=== PATIENT | male | born 1995 | race African-American/Black ===

== ENCOUNTER 2025-03-31 14:37 | Emergency (ER) | payer BC, SELFPAY ==
--- NOTE | ~2025-03-31 | XR_ITS ---
EXAM/PROCEDURE: XR chest 2V - 03/31/2025 15:10 CDT HISTORY: 29 years old Male with cp TECHNIQUE: Two view(s) of the chest. COMPARISON: None available. FINDINGS: LUNGS/ PLEURA: No focal consolidation. No appreciable pneumothorax or large pleural effusion. HEART/ MEDIASTINUM: Heart appears normal in size. BONES: Degenerative changes. OTHER: Visualized upper abdomen is unremarkable. IMPRESSION: No acute process. Reviewed, dictated and finalized at location N. IMPRESSION: No acute process.
--- NOTE | 2025-03-31 14:38 | ECG_ITS ---
Test Date: 2025-03-31 14:42:22 Measurements Intervals [place] Rate: 79 P: 22 MO: 154 QRS: 41 QRSD: 97 T: -2 QT: 348 QTc: 401 Interpretive Statements SINUS RHYTHM NONSPECIFIC T-WAVE ABNORMALITY ABNORMAL ECG No previous ECG available for comparison Electronically Signed On 03-31-2025 17:19:10 CDT by Eder Cisneros M.D.
[2025-03-31 14:48] VITALS: BP 144/79; PULSE 83; RESP 16; TEMP 36.6; O2SAT 100
[2025-03-31 14:54] LABS: Hematocrit 46.3 % (42.0-52.0); Hemoglobin 15.5 g/dL (14.0-18.0); Immature Granulocyte Percent A 0.1 % (0-0.5); Lymphocytes Absolute Auto 2.74 K/mm3 (0.9-3.2); Mean Corpuscular HGB Conc 33.5 g/dl (32-36); Mean Corpuscular Hemoglobin 28.1 pg (26-34); Mean Corpuscular Volume 84.0 fl (80-100); Nucleated Red Blood Cells Absolute Auto 0.000 K/mm3 (0.0-0.012); Nucleated Red Blood Cells Perc 0.0 % (0.0-0.2); Platelet Count Result 288 k/mm3 (150-375); Red Blood Count 5.51 M/mm3 (4.6-6.20); White Blood Count 6.9 K/mm3 (4.5-10.0)
[2025-03-31 15:03] LABS: Alanine Aminotransferase 34 U/L (6-50); Albumin Level 4.8 g/dL (3.5-5.1); Alkaline Phosphatase 115 U/L (38-126); Anion Gap 10 mmol/L (4-12); Aspartate Amino Transferase 55 U/L (17-59); Bilirubin,Total 1.0 mg/dL (0.2-1.3); Blood Urea Nitrogen 12 mg/dL (9-20); Calcium 9.4 mg/dL (8.4-10.2); Carbon Dioxide 24 mmol/L (22-30); Chloride 105 mmol/L (98-107); Estimated CRCL calculation 118 ml/min; Estimated Glomerular Filt Rate > 60; Glucose 85 mg/dL (65-110); Lipase 117 U/L (23-300); Potassium 4.0 mmol/L (3.4-5.0); Sodium 139 mmol/L (137-145); Total Protein 8.9 g/dL (6.3-8.2)
[2025-03-31 15:05] LABS: INR 1.3; Prothrombin Time 16.3 Seconds (11.1-14.7)
[2025-03-31 15:06] LABS: Partial Thromboplastin Time 28.2 Seconds (22.3-36.8)
[2025-03-31 15:15] LABS: Troponin I < 0.012 ng/mL (0.000-0.034)
[2025-03-31 15:56] VITALS: BP 135/88; PULSE 75; RESP 16; O2SAT 100
[2025-03-31 16:02] VITALS: O2SAT 100
[2025-03-31 16:49] VITALS: BP 140/93; PULSE 72; RESP 16; O2SAT 99
--- NOTE | 2025-03-31 17:36 | ECG_ITS ---
Test Date: 2025-03-31 17:41:55 Measurements Intervals [place] Rate: 59 P: 27 MS: 169 QRS: 37 QRSD: 106 T: -1 QT: 382 QTc: 378 Interpretive Statements SINUS BRADYCARDIA WITH SINUS ARRHYTHMIA MODERATE INTRAVENTRICULAR CONDUCTION DELAY [105+ ms QRS DURATION, 80+ ms Q/S IN V1/V2, NO Q AND 60+ ms R IN I/aVL/V5/V6] NONSPECIFIC T-WAVE ABNORMALITY ABNORMAL ECG Compared to ECG 03/31/2025 14:42:22 Intraventricular conduction delay now present Sinus rhythm no longer present T-wave abnormality still present Electronically Signed On 03-31-2025 18:14:07 CDT by Eder Cisneros M.D.
--- OUTSIDE RECORDS SUMMARY | 2025-03-31 18:03 | XMS_ITS | Encounter Summary ---
Author Organization [facility] Health Address [address] [place] [address] Care Team Providers Care Extrusion Technician Name Role Phone Unavailable Primary Care Provider Unavailabl e Encounter Details Date Type Department Care Team (Latest Contact Info) Description 05/02/2021 Abstract Social History Tobacco Use Types Packs/Day Years Used Date Smoking Tobacco: Never Assessed Sex and Gender Information Value Date Recorded Sex Assigned at Not on file Legal Sex Male 10:44 AM PDT Gender Identity Not on file Sexual Orientation Not on file COVID-19 Exposure Response Date Recorded In the last month, have you been in contact with someone who was confirmed or suspected to have Coronavirus / COVID-19? No / Unsure 05/02/2021 12:46 PM PDT documented as of this encounter Plan of Treatment Not on file documented as of this encounter Visit Diagnoses Not on filedocumented in this encounter
--- OUTSIDE RECORDS SUMMARY | 2025-03-31 18:03 | XMS_ITS | Clinical Summary ---
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 Gender Identity Not on file Sexual Orientation Not on file Plan of Treatment Health Maintenance Due Date Last Done Comments Hepatitis C Virus (HCV) Screening 1996 Human Papillomavirus (HPV) Immunization (1 - 3-dose SCDM series) 10/16/2023 SARS-COV-2 Immunization ( season) 2024 12/15/2020, 11/16/2020 Influenza Immunization (#1) 2025 Respiratory Syncytial Virus (RSV) Immunization (Adult) (1 - 1-dose 75+ series) 10/16/2071 Hepatitis B Immunization Completed 998, 12/22/1997, 1996, Additional history exists DTaP/Tdap/Td Immunization Discontinued 2007, 01/22/2002, 01/21/1999, Additional history exists TdaP Immunization Completed 10/25/2007 Meningococcal Immunization (ACWY) Aged Out 03/10/2011 No longer eligible based on patient's age to complete this topic Pneumococcal Immunization Combined Aged Out No longer eligible based on patient's age to complete this topic Rotavirus Immunization Aged Out No lo nger eligible based on patient's age to complete this topic
--- OUTSIDE RECORDS SUMMARY | 2025-03-31 18:03 | XMS_ITS | Encounter Summary ---
Author Organization [facility] Health Address [address] [place] [address] Care Team Providers Care Superintendent Circus Name Role Phone Unavailable Primary Care Provider Unavailabl e Prior Encounters Date Type Department Care Team Description 05/02/2021 Abstract 05/02/2021 Travel 05/02/2021 1:00 PM CDT Office Visit [facility] [address] [place] [phone] Carlita De Leon DMD Plan of Treatment Not on file Procedures Procedure Name Priority Date/Time Associated Diagnosis Comments INTRAORAL PHOTO Routine 05/02/2021 1:00 PM CDT INTRAORAL PHOTO Routine 05/02/2021 1:00 PM CDT INTRAORAL PHOTO Routine 05/02/2021 1:00 PM CDT INTRAORAL PHOTO Routine 05/02/2021 1:00 PM CDT PANORAMIC RADIOGRAPHIC IMAGE Routine 05/02/2021 1:00 PM CDT INTRAORAL - COMPREHENSIVE SERIES OF RADIOGRAPHIC IMAGES Routine 05/02/2021 1:00 PM CDT COMPREHENSIVE ORAL EVALUATION - NEW OR ESTABLISHED PATIENT Routine 05/02/2021 1:00 PM CDT Visit Diagnoses [place] [id number] [place] [employer]
--- OUTSIDE RECORDS SUMMARY | 2025-03-31 18:03 | XMS_ITS | Clinical Summary ---
Author Organization [facility] [employer] Address [address] [place] [address] Care Team Providers Care Assurance Specialist Name Role Phone Unavailable Primary Care Provider Unavailabl e Source Comments [facility] [employer] [employer],non-owned Affiliates and Associated Physician Practices is amultiple site organization consisting of ambulatory clinics and hospital sitesin [place], [place], [place] and [place]. This disclosure is being madepursuant to the Care Everywhere program and may not contain all information available regarding this patient. Last updated 18.[employer] [facility] Allergies No known active allergies Medications * Be aware that medications may not be up to date on this document. Alwaysverify current medications with the patient. amitriptyline (ELAVIL) 25 MG tabletIndications :Post concussive syndrome,Head ache,Vision disturbance Take 1 Tab by mouth at bedtime. 30 Tab 3 10/30/2013 Active Active Problems Problem Noted Date Diagnosed Date Post concussive syndrome 10/30/2013 Head ache 10/30/2013 Overview (11/14/2013): 10/30/13 Elavil 25 mg po q hs Knee pain 10/30/2013 Overview (11/14/2013): 10/30/13 X-ray ordered. HAY, RF, ESR, CRP Tinea capitis 10/30/2013 Overview (11/14/2013): 10/30/13 Griseofulvin Malaise and fatigue 10/30/2013 Overview (11/14/2013): 10/30/13 CBC, monospot, EBV Concussion 07/27/2013 Overview (08/01/2013): 07/27/13 [facility] Well child visit 03/10/2011 Overview (03/26/2011): 15 yo 03/10/11 Ganglion cyst 06/15/2010 Overview (03/26/2011): 08/25/10 xray neg 03/10/11 referred to ortho Immunizations Immunization Administration Dates Next Due DPT 01/21/1999, 8,02/27/1997,12/23 HEP A PEDS 2 DOSE 03/10/2011,01/21/2007 HEP B VACCINE, PED/ADOL 06/25/1998,1996, HIB BOOSTER 01/21/1999, 8,04/03/1997,12/23 Human Papilloma Virus Li valent Vaccine 03/10/2011 MENINGOCOCCAL ACWY (MCV4P) VAC IM 03/10/2011 MMR 01/22/2002,06/25/1998 POLIO IPV 01/22/2002 POLIO OPV 12/22/1997,04/03/1997,1996 PPD 01/11/2001 TDAP (7yrs+) 01/22/2002 VARICELLA 01/21/2007,01/21/1999 Social History Tobacco Use Types Packs/Day Years Used Date Smoking Tobacco: Never Smokeless Tobacco: Never Alcohol Use Standard Drinks/Week Comments No 0 (1 standard drink = 0.6 oz pur e alcohol) Sex and Gender Information Value Date Recorded Sex Assigned at Not on file 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 Gender Identity Not on file Sexual Orientation Not on file Last Filed Vital Signs Vital Sign Reading Time Taken Comments Blood Pressure 149/78 04/02/2016 8:00 PM CDT Pulse 56 04/02/2016 8:00 PM CDT Temperature 36.5 C (97.7 F) 04/02/2016 4:58 PM CDT Respiratory Rate 18 04/02/2016 8:00 PM CDT Oxygen Saturation 100% 04/02/2016 8:00 PM CDT Inhaled Oxygen Concentration - - Weight 85 kg (187 lb 8 oz) 04/02/2016 4:58 PM CD T Height 188 cm (6' 2) 04/02/2016 4:58 PM CDT Body Mass Index 24.07 04/02/2016 4:58 PM CDT Plan of Treatment Health Maintenance Due Date Last Done Comments DTAP/TDAP/TD VACCINES (6 - Tdap) 10/16/2007 01/22/2002, 01/21/1999, 06/25/1998, Additional history exists HPV VACCINE (2 - Male 2-dose series) 09/10/2011 03/10/2011 HIV SCREENING 10/16/2011 HEPATITIS C SCREENING 10/11/2014 DEPRESSION SCREENING 07/16/2024 COVID-19 VACCINE ( season) 2025 INFLUENZA VACCINE (#1) 2025 ZOSTER VACCINE (1 of 2) 2046 HEPATITIS B VACCINE Completed 06/25/1998, 1996, 1996 HIB VACCINE Completed 01/21/1999, 06/15, 04/03/1997, Additional history exists MENINGOCOCCAL GROUPS A/C/Y/W VACCINE Aged Out 03/10/2011 No longer eligible based on patient's age to complete this topic MENINGOCOCCAL (Group B) VACCINE SHARED DECISION-MAKING Aged Out No longer eligible based on patient's age to complete this topic PNEUMOCOCCAL VACCINE Aged Out No long er eligible based on patient's age to complete this topic Insurance MEDICAID - [place]
--- OUTSIDE RECORDS SUMMARY | 2025-03-31 18:03 | XMS_ITS | Clinical Summary ---
Author Organization [facility] Health Address [address] [place] [address] Care Team Providers Care Ict Managers Name Role Phone Unavailable Primary Care Provider Unavailabl e Allergies No known active allergies Medications No known medications Active Problems No known active problems Social History Tobacco Use Types Packs/Day Years Used Date Smoking Tobacco: Never Assessed Sex and Gender Information Value Date Recorded Sex Assigned at Not on file Legal Sex Male 10:44 AM PDT Gender Identity Not on file Sexual Orientation Not on file Plan of Treatment Health Maintenance Due Date Last Done Comments Dental Prophylaxis 1996 Dental Oral Exam 11/01/2021 05/02/2021 Dental X-Ray: Bitewings 11/01/2021 05/02/2021 Dental X-Ray: Full Mouth 05/03/2024 05/02/2021 Dental X-Ray: Panoramic 05/03/2024 05/02/2021 Procedures Procedure Name Priority Date/Time Associated Diagnosis Comments PANORAMIC RADIOGRAPHIC IMAGE Routine 05/02/2021 1:00 PM CDT INTRAORAL - COMPREHENSIVE SERIES OF RADIOGRAPHIC IMAGES Routine 05/02/2021 1:00 PM CDT COMPREHENSIVE ORAL EVALUATION - NEW OR ESTABLISHED PATIENT Routine 05/02/2021 1:00 PM CDT from Last 3 Months or Most Recently Relevant to Health Maintenance [place] [address] [place] [id number] [employer] [employer]
[2025-03-31 18:15] LABS: Troponin I < 0.012 ng/mL (0.000-0.034)
--- NOTE | 2025-03-31 18:32 | ED_ITS ---
HPI - Chest Pain General Chief Complaint: Chest Pain Stated Complaint: chest pain Time Seen by Provider: 03/31/25 16:50 Source: patient Mode of arrival: ambulatory Limitations: no limitations History of Present Illness HPI narrative: 29-year-old otherwise healthy with a complains of intermittent sharp shooting chest pain on and off for past several weeks. Patient states that he was at work this morning started having pain. He he denies any shortness of breath . Denies any trauma or lifting any heavy objects. MD complaint: chest pain Onset (ago): hour(s) (few) Timing of current episode: episodic Onset: during rest Pain location: left chest Pain radiation: left arm Severity: mild Quality: shooting Relieving factors: nothing Exacerbating factors: nothing Risk Factors Coronary artery disease risk factors: none Related Data Allergies Allergy/AdvReac Type Severity Reaction Status Date / Time No Known Allergies Allergy Verified 03/31/25 14:54 Review of Systems 2 Review of Systems: All systems reviewed & are unremarkable except as noted in HPI and below Constitutional: Constitutional: Reports no additional constitutional complaints Eyes: Eyes: Reports no additional eye complaints ENT: Reports system reviewed and no additional complaints, except as documented Cardiovascular: Cardiovascular: Reports as per HPI Respiratory: Respiratory: Reports no additional respiratory complaints Gastrointestinal: Gastrointestinal: Reports no additional gastrointestinal complaints Musculoskeletal: Musculoskeletal: Reports no additional musculoskeletal complaints Neurologic: Reports system reviewed and no additional complaints, except as documented Exam 2 Narrative: GENERAL: Well-appearing, well-nourished, and in no acute distress. HEAD: Normocephalic, atraumatic. EYES: PERRLA and EOMI. ENT: Nares clear, no rhinorrhea or epistaxis. Mucous membranes moist. NECK: Supple. CHEST: Clear to auscultation. No respiratory distress.tenderness on palpation HEART: Regular rate and rhythm. No murmur heard. Normal peripheral pulses. ABDOMEN: Soft, nontender, nondistended, normal active bowel sounds. EXTREMITIES: Normal range of motion. No edema. SKIN: Warm, dry, no rash. NEURO: No focal deficits. Alert and oriented x3. PSYCH: Normal mood and affect. Course Course Emergency Course: Patient remained asymptomatic while he was here in the ER. Informed him about his lab and EKG findings. Cause of his pain most likely musculoskeletal in nature advised him to take naproxen as prescribed. Vital Signs Vital signs: Vital Signs Temperature 36.6 C 09/16/25 14:48 Pulse Rate 83 03/31/25 14:48 Respiratory Rate 16 03/31/25 14:48 Blood Pressure 144/79 H 03/31/25 14:48 Pulse Oximetry 100 03/31/25 14:48 Oxygen Delivery Room Air 03/31/25 14:48 Temperature 36.6 C 03/31/25 14:48 Pulse Rate 72 03/31/25 16:49 Respiratory Rate 16 03/31/25 16:49 Blood Pressure 140/93 H 03/31/25 16:49 Pulse Oximetry 99 03/31/25 16:49 Oxygen Delivery Room Air 03/31/25 16:02 MDM - Chest Pain Differential Diagnosis Differential diagnosis: Likely fracture of rib, stable angina, atypical chest pain, costochondritis and chest pain Medical Records Data Attestation: I reviewed the patient's medical records. Lab Data Attestation: I reviewed the patient's lab results. 03/31/25 14:47 03/31/25 14:47 Labs: Lab Results 03/31/25 03/31/25 Range/Units 14:47 17:42 WBC 6.9 (4.5-10.0) K/mm3 RBC 5.51 (4.6-6.20) M/mm3 Hgb 15.5 (14.0-18.0) g/dL Hct 46.3 (42.0-52.0) % MCV 84.0 (80-100) fl MCH 28.1 (26-34) pg MCHC 33.5 (32-36) g/dl RDW 13.4 (11.5-14.5) % Plt Count 288 (150-375) k/mm3 MPV 9.8 (7.4-10.4) fl Immature Gran % (Auto) 0.1 (0-0.5) % Neut % (Auto) 52.6 (45.5-73.1) % Lymph % (Auto) 39.9 (18.3-44.2) % [place] % (Auto) 5.8 (2.6-8.5) % Eos % (Auto) 1.2 (0-4.4) % Baso % (Auto) 0.4 (0.2-1.2) % Lymph # (Auto) 2.74 (0.9-3.2) K/mm3 [place] # (Auto) 0.4 (0.1-0.6) K/mm3 Eos # (Auto) 0.1 (0-0.3) K/mm3 Baso # (Auto) 0.0 (0.0-0.1) K/mm3 Abs Immat Gran (auto) 0.01 (0.00-0.031) K/mm3 Absolute Neuts (auto) 3.6 (1.3-6.7) K/mm3 Absolute Nucleated RBC 0.000 (0.0-0.012) K/mm3 Nucleated RBC % 0.0 (0.0-0.2) % PT 16.3 H (11.1-14.7) Seconds INR 1.3 APTT 28.2 (22.3-36.8) Seconds Sodium 139 (137-145) mmol/L Potassium 4.0 (3.4-5.0) mmol/L Chloride 105 (98-107) mmol/L Carbon Dioxide 24 (22-30) mmol/L Anion Gap 10 (4-12) mmol/L BUN 12 (9-20) mg/dL Creatinine 1.17 (0.7-1.3) mg/dL Estim Creat Clear Calc 118 ml/min Estimated GFR > 60 (59 - ) Glucose 85 (65-110) mg/dL Calcium 9.4 (8.4-10.2) mg/dL Total Bilirubin 1.0 (0.2-1.3) mg/dL AST 55 (17-59) U/L ALT 34 (6-50) U/L Alkaline Phosphatase 115 (38-126) U/L Troponin I < 0.012 < 0.012 (0.000-0.034) ng/mL Total Protein 8.9 H (6.3-8.2) g/dL Albumin 4.8 (3.5-5.1) g/dL Lipase 117 (23-300) U/L Imaging Data Radiologist's impression: ITS Impressions Chest X-Ray 03/31/25 15:31 IMPRESSION: No acute process. ECG Data EKG #1: ECG completion date: 03/31/25 ECG completion time: 14:42 EKG Interpretation: normal rate (79), sinus rhythm, no ectopy, no ST changes, normal QRS and NL axis EKG #2: ECG completion date: 03/31/25 ECG completion time: 17:42 EKG Interpretation: normal rate (59), sinus rhythm, no ectopy, no ST changes and normal QRS Discharge Plan Discharge Clinical Impression: Chest pain Qualifiers: Chest pain type: unspecified Qualified Code(s): R07.9 - Chest pain, unspecified Patient Disposition: Home Condition: Stable Instructions: Chest Pain (ED) Patient Language: Maltese Prescriptions: New naproxen 500 mg tablet 500 mg PO BID PRN (Reason: pain) Qty: 14 0RF Follow-up/Referrals: PHYSICIAN NOT ON STAFF,NONSTAFF [Primary Care Provider] Riley Heller MD [Physician, Family Practice] Time of Disposition: 18:33
[2025-03-31 18:42] VITALS: BP 139/80; PULSE 78; RESP 18; O2SAT 100
== END 2025-03-31 18:45 | disposition home or self-care (01) ==
PROVIDERS: Emergency Provider Family Medicine
DX: R07.9 Chest pain, unspecified (principal); R00.1 Bradycardia, unspecified; I45.9 Conduction disorder, unspecified; R94.31 Abnormal electrocardiogram [ECG] [EKG]
CPT/HCPCS: 36415; 71046; 80053; 83690; 84484; 85025; 85610; 85730; 93005; 99284